=== PATIENT | male | born 1965 | race African-American/Black ===

== ENCOUNTER 2018-02-19 22:03 | Emergency (ER) | payer OTHER ==
[~2018-02-19] VITALS: Ht 185.4 cm; Wt 117.9 kg
[2018-02-19] MEDS ORDERED: NEOMY/BACITR/POLYMYXIN OINT PACKET. TP ONE (23:00)
[2018-02-19] MEDS ORDERED: LIDOCAINE 2%/EPI 1:100,000 20 ML VIAL. IJ ONE (23:00)
[2018-02-19 23:14] VITALS: BP 153/98
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
== END 2018-02-20 | disposition left against medical advice (07) ==
LOC: ER 22:03
DX: S01.01XA Laceration without foreign body of scalp, initial encounter (principal); Y08.89XA Assault by other specified means, initial encounter; Y93.89 Activity, other specified; Y92.098 Other place in other non-institutional residence as the place of occurrence of the external cause; Y99.8 Other external cause status
CPT/HCPCS: 99283